=== PATIENT | male | born 1970 | race Caucasian/White ===

== ENCOUNTER 2021-05-31 10:37 | Outpatient (REF) | payer BC, SELFPAY ==
[2021-05-31 22:34] LABS: Abs Immature Grans 0.03 10^3/uL (0.0-0.06); Absolute Basophil Count 0.06 10^3/uL (0.0-0.2); Absolute Eosinophil Count 0.15 10^3/uL (0.0-0.7); Absolute Lymphocyte Count 2.49 10^3/uL (1.2-3.4); Absolute Monocyte Count 0.87 10^3/uL (0.1-0.8); Absolute Neutrophil Count 4.07 10^3/uL (1.2-6.7); Basophils % 0.8; ESR 2 mm/hr (0-15); HCT 46.2 % (40.0-50.0); Immature Grans % 0.4; Lymphocytes % 32.5; MCH 29.8 pg (27.0-33.0); MCHC 32.5 % (32.0-36.0); MCV 91.8 fL (80-95); MPV 10.1 fL (8.0-11.0); Monocytes % 11.3; Nucleated RBC 0 %; Platelet Count 377 10^3/uL (130-400); RBC 5.03 10^6/uL (4.36-5.78); RDW 13.8 % (11.8-14.1); RDW-SD 47.2 fL; WBC 7.67 10^3/uL (4.4-10.8)
[2021-05-31 22:49] LABS: ALT 32 U/L (16-63); AST 22 U/L (15-37); Albumin 4.1 g/dL (3.4-5.0); Alkaline Phosphatase 68 U/L (46-116); Anion Gap 8.8 mmol/L (3-11); BUN 17 mg/dL (7-18); Bilirubin, Total 0.4 mg/dL (0.2-1.0); CO2 27.2 mmol/L (21.0-32.0); CREATININE 0.8 mg/dL (0.70-1.30); Chloride 105 mmol/L (98-107); Glucose 91 mg/dL (74-106); Potassium 4.3 mmol/L (3.5-5.1); Sodium 141 mmol/L (136-145); Total Protein 7.1 g/dL (6.4-8.2)
== END 2021-05-31 10:38 | disposition home or self-care (01) ==
LOC: NCHCN 10:37
PROVIDERS: Visit Provider Family Medicine
DX: Z00.00 Encounter for general adult medical examination without abnormal findings (principal); R19.7 Diarrhea, unspecified; B00.2 Herpesviral gingivostomatitis and pharyngotonsillitis
CPT/HCPCS: 80053; 85652; 85025

== ENCOUNTER 2023-03-22 12:25 | Emergency (ER) | payer MEDICAID, SELFPAY ==
[2023-03-22] VITALS (10 sets, daily range): BP systolic 156; BP diastolic 106; PULSE 84–109; RESP 13–22; TEMP 36.2; O2SAT 92–100
--- NOTE | 2023-03-22 12:15 | RT.EKG_ITS ---
APPROVED REPORT Exam: Resting ECG Reason for Exam: Diaphoretic Patient Location: E HR:102 bpm ECG Measurements Heart Rate 102 AXIS AL 131 P 59 QRSd 92 QRS 94 QT 353 T [id number] QTc 462 Conclusion Sinus tachycardia...rate> 99 Narrow complex sinus tachycardia at a rate of 102. Difficult to interpret secondary to wandering emily zamora. No obvious acute injury pattern. No prior for comparison.
[2023-03-22 13:12] LABS: BE (Venous) -1 mmol/L (-2-3); HCO3 (Venous) 22 mmol/L (23-28); O2 Sat (Venous) 69 %; TCO2 (Venous) 18 mmol/L (24-29); pCO2 (Venous) 26 mmHg (41-51); pH (Venous) 7.53 (7.31-7.41); pO2 (Venous) 31 mmHg
[2023-03-22 13:13] LABS: Abs Immature Grans 0.04 10^3/uL (0.0-0.06); Absolute Eosinophil Count 0.15 10^3/uL (0.0-0.7); Absolute Monocyte Count 1.02 10^3/uL (0.1-0.8); Absolute Neutrophil Count 4.18 10^3/uL (1.2-6.7); Basophils % 1.2; Eosinophils % 1.8; HCT 53.1 % (40.0-50.0); HGB 18.1 g/dL (13.5-17.5); Immature Grans % 0.5; Lymphocytes % 33.8; MCH 30.2 pg (27.0-33.0); MCHC 34.1 % (32.0-36.0); MCV 89 fL (80-95); MPV 8.7 fL (8.0-11.0); Monocytes % 12.3; Neutrophils % 50.4; Platelet Count 413 10^3/uL (130-400); RDW 12.6 % (11.8-14.1); RDW-SD 41.4 fL; WBC 8.29 10^3/uL (4.4-10.8)
[2023-03-22] MEDS: LORazepam 2 MG/ML VIAL 0.5 MG IVP (13:25)
[2023-03-22] MEDS: Normal Saline 1,000 ML 1000 ML IV (13:26)
[2023-03-22 13:33] LABS: Salicylate < 2.8 mg/dL (<2.8)
--- NOTE | 2023-03-22 13:33 | ED.GENADUL_ITS ---
Discharge Plan Disposition Patient Disposition: Home Condition: Improving Discharge Details Clinical Impression: Tachycardia, Insomnia, Diaphoresis Primary Care Provider: Lilian Escobedo ED Provider: Josep Jiang Home Meds and New Rx's Prescriptions: New clonazepam 0.5 mg tablet 0.5 mg PO QHS Qty: 7 0RF Rx Instructions: administer 30 minutes before bedtime; prn severe insomnia/anxiety No Action valacyclovir [Valtrex] 500 mg Tablet 500 mg PO DAILY trazodone 100 mg Tablet 200 mg PO HS Benefiber Sugar Free (dextrin) 1 gram Tablet,Chewable 1 tab PO DAILY Rx Instructions: chew thoroughly before swallowing; do not swallow whole Discharge Instructions Instructions: Insomnia (ED) Additional Instructions: Please follow-up with your primary care physician. Please only take the clonazepam medication for severe instances of insomnia and/or anxiety. Please return to the emergency department for any worsening symptom Medical Decision Making 52-year-old male presents with diaphoresis pallor tachycardia hypertension difficulty sleeping nausea and decreased appetite with an unintentional 20 pound weight loss over the past couple of months. Neurologically intact without deficits, no ataxia, following commands, calm cooperative however does appear anxious. Denies drug or alcohol abuse. Denies history of psychiatric illness however patient is on trazodone. Consider alcohol withdrawal versus viral illness versus bacterial illness such as pneumonia or intra-abdominal process versus drug withdrawal versus dehydration versus toxicologic process low suspicion for ACS or PE or aortic pathology. Will obtain screening labs blood sugar, VBG, proctologic labs, urinalysis, CT chest abdomen pelvis, fluids low- dose benzodiazepine close reassessment 15: 50 patient feeling much better after low-dose benzodiazepine heart rate now in the 80s, blood pressure has improved. Labs and imaging unremarkable. Consider severe insomnia anxiety and/or panic attack. Patient follows closely with primary care physician and will discuss further evaluation. Will provide short course of rescue clonazepam. Given home care instructions and strict return precautions HPI General Date/Time Provider Initiated Documentation: 03/22/23 12:40 . HPI Narrative: 52-year-old male presents with several days of difficulty sleeping nausea decreased appetite, endorses a 20 pound unintentional weight loss since December. No chest pain or shortness of breath. No cough. Feels sweaty and anxious. Denies drug or alcohol use. Denies history of bipolar/mary. Related Data Home Medications Medication Instructions Recorded Confirmed clonazepam 0.5 mg tablet 0.5 mg PO QHS #7 tabs 03/22/23 trazodone 100 mg tablet 200 mg PO HS 03/22/23 03/22/23 valacyclovir 500 mg tablet 500 mg PO DAILY 03/22/23 03/22/23 (Valtrex) wheat dextrin 1 gram chewable 1 tab PO DAILY 03/22/23 03/22/23 tablet (Benefiber Sugar Free (dextrin)) Previous Rx's Medication Instructions Recorded clonazepam 0.5 mg tablet 0.5 mg PO QHS #7 tabs 03/22/23 Allergies Allergy/AdvReac Type Severity Reaction Status Date / Time No Known Allergies Allergy Unverified 03/22/23 12:36 General Stated Complaint: GenMedical OLGA: 2 Review of Systems Narrative: Review of Systems Constitutional: Sweating Eyes: negative ENT: negative Cardiovascular: negative Respiratory: negative Gastrointestinal: Nausea : negative Musculoskeletal: negative Skin: negative Neurologic: Insomnia Psych: negative PFSH All Active Problems (Updated 03/22/23 @ 15:51 by Josep Jiang MD) Tachycardia (Acute) Insomnia (Acute) Diaphoresis (Acute) Social History Smoking/Tobacco Use Status: Never Smoking risk assessment performed?: Yes Alcohol Intake: never Substance use type: does not use Do you feel safe at home: Yes Do you feel safe in your relationship?: Yes Exam Narrative Exam Narrative: Physical Examination General: alert, awake, cooperative, resting comfortably, no acute distress HEENT: normocephalic, atraumatic; PERRL, EOM intact, conjunctiva normal; no nasal discharge; moist mucous membranes, oral and pharyngeal mucosa normal, to lerating secretions Neck: supple, trachea midline; full ROM Chest: normal to inspection Respiratory: normal respiratory effort, speaking in full sentences, clear to auscultation, no wheezing, rales or rhonchi Cardiac: Tachycardia, regular rhythm, S1S2 intact, no murmurs rubs or gallops GI: abdomen soft, non-tender, non-distended; no palpable mass or hepatosplenomegaly Skin: Diaphoretic, pallor Neuro: AAOx3, normal speech, moving all extremities; 5-5 strength upper and lower extremities, cranial nerves intact, no ataxia Psych: Appropriate mood and affect Course Vital Signs Vital signs: Vital Signs Pulse 109 H 03/22/23 12:33 Respiratory Rate 20 03/22/23 12:33 Blood Pressure 156/106 H 03/22/23 12:33 Pulse Oximetry 100 03/22/23 12:33 Temperature 36.2 C L 03/22/23 13:17 Pulse 109 H 03/22/23 12:33 Respiratory Rate 20 03/22/23 12:33 Blood Pressure 156/106 H 03/22/23 12:33 Blood Pressure Position Sitting 03/22/23 12:33 Pulse Oximetry 100 03/22/23 12:33 Oxygen Delivery Method Room Air 03/22/23 12:33 Oxygen Flow Rate 0 03/22/23 12:33 Pain Level 0 03/22/23 12:33 Lab/Test Results Lab/Test Results: 03/22/23 12:49 Blood Blood Culture - Pending 03/22/23 12:49 Blood Blood Culture - Pending Laboratory Tests Range/Units 03/22/23 03/22/23 13:00 13:00 WBC (4.4-10.8) 10^3/uL 8.29 RBC (4.36-5.78) 10^6/uL 6.00 H Hgb (13.5-17.5) g/dL 18.1 H Hct (40.0-50.0) % 53.1 H MCV (80-95) fL 89 MCH (27.0-33.0) pg 30.2 MCHC (32.0-36.0) % 34.1 RDW (11.8-14.1) % 12.6 Plt Count (130-400) 10^3/uL 413 H MPV (8.0-11.0) fL 8.7 Immature Gran % 0.5 Neutrophils % 50.4 Lymphocytes % 33.8 Monocytes % 12.3 Eosinophils % 1.8 Basophils % 1.2 Nucleated RBC % (0.0-0.3) % 0.0 Absolute Neutrophils (1.2-6.7) 10^3/uL 4.18 Absolute Lymphocytes (1.2-3.4) 10^3/uL 2.80 Absolute Monocytes (0.1-0.8) 10^3/uL 1.02 H Absolute Eosinophils (0.0-0.7) 10^3/uL 0.15 Absolute Basophils (0.0-0.2) 10^3/uL 0.10 VBG pH (7.31-7.41) 7.53 H VBG pCO2 (41-51) mmHg 26 L VBG pO2 mmHg 31 VBG HCO3 (23-28) mmol/L 22 L VBG Total CO2 (24-29) mmol/L 18 L VBG O2 Saturation % 69 VBG Base Excess (-2-3) mmol/L -1
[2023-03-22 13:38] LABS: ALT 111 U/L (16-63); AST 46 U/L (15-37); Albumin 4.8 g/dL (3.4-5.0); Alkaline Phosphatase 83 U/L (46-116); Anion Gap 14.7 mmol/L (3-11); BUN 15 mg/dL (7-18); Bilirubin, Total 0.7 mg/dL (0.2-1.0); CO2 23.3 mmol/L (21.0-32.0); Calcium 10.7 mg/dL (8.5-10.1); Chloride 101 mmol/L (98-107); Creatine Kinase 60 U/L (39-308); Estimated GFR 90.56 (mL/min/1.73m2); Glucose 110 mg/dL (74-106); Lipase 53 U/L (16-77); Magnesium 2.2 mg/dL (1.8-2.4); Potassium 3.3 mmol/L (3.5-5.1); Sodium 139 mmol/L (136-145); TSH (W/Ref FT4) 1.46 uIU/mL (0.36-3.74); Total Protein 9.3 g/dL (6.4-8.2)
[2023-03-22 13:39] LABS: ETHANOL BLOOD < 3.0 mg/dL (<10); Troponin I < 50 ng/L (<or=60)
--- NOTE | 2023-03-22 15:10 | DI.CT_ITS ---
Exam(s) CT CERVICAL SPINE WO EXAM: CT CERVICAL SPINE WO CLINICAL HISTORY: neck pain. TECHNIQUE: Imaging Protocol: Axial computed tomography images with coronal and sagittal reformatted images were created and reviewed CONTRAST MATERIAL: Noncontrast COMPARISON: No exams were available for comparison FINDINGS: Bones: No fracture or dislocations are seen. The alignment of the cervical spine is normal including the cervicovertebral junction and cervicothoracic junction. Degenerative changes at C1-2. Mild degen erative disc changes seen elsewhere. Soft Tissues: The soft tissues of the neck are unremarkable. No large disk herniations are identified . The visualized portions of the lung apices are clear. No pneumothorax is seen. IMPRESSION: No acute abnormality. RADIATION DOSE DELIVERED: 504.8mGy.cm Total DLP DATA REPOSITORY: All CT scans at this facility are submitted to the National Radiology Data Registry (NRDR) Dose Index Registry (DIR) with the [employer] ([employer]). RADIATION OPTIMIZATION: All CT scans at this facility use at least one of these dose optimization te chniques: automated exposure control; mA and/or kV adjustment per patient size (includes targeted exa ms where dose is matched to clinical indication); or iterative reconstruction.
[2023-03-22] MEDS: Normal Saline - Diluent 50 ML VIAL IJ (15:14)
[2023-03-22] MEDS: Omnipaque 350 MG/ML 100 ML BTL IJ (15:14)
--- NOTE | 2023-03-22 15:20 | DI.CT_ITS ---
Exam(s) CT CHEST/ABD/PEL W EXAM: CT CHEST/ABD/PEL W CLINICAL HISTORY: sweats, nausea, tachycardia. TECHNIQUE: Imaging Protocol: Axial computed tomography images with coronal and sagittal reformatted images were created and reviewed CONTRAST MATERIAL: Intravenous: Omnipaque 350 Contrast volume:100 ml Oral: / no COMPARISON: No exams were available for comparison FINDINGS: CHEST: Tracheobronchial tree: Patent where visualized. Pulmonary parenchyma: No consolidation or dominant measurable mass. Pleura: No effusion or pneumothorax. Lymph nodes: Within normal limits. Aorta: Thoracic portion non-dilated. Heart: Normal size. No pericardial effusion. No coronary artery calcifications. Bones: Unremarkable for age. No lytic or blastic lesions.No compression fractures. ABDOMEN and PELVIS: Liver: Normal density. No measurable mass. Gallbladder and biliary tract: No evidence of stones or wall thickening. No biliary dilatation. Pancreas: Normal density, no abnormal calcifications or inflammatory process. Spleen: Normal. Kidneys: Normal size, contour and axis. No radiodense stones or obstructive uropathy. No suspicious m asses seen. Adrenal glands: No masses seen. Aorta: Abdominal portion non-dilated. Mild atherosclerotic changes. Lymph nodes: Within normal limits. Soft tissues: Unremarkable. Bladder: Unremarkable. Bowel: No obstruction or bowel wall thickening. Peritoneal cavity: No ascites. No focal collection or mesenteric inflammatory response. Bones: Unremarkable for age. Reproductive organs: Within normal limits. IMPRESSION: No acute abnormality in the chest, abdomen or pelvis.. RADIATION DOSE DELIVERED: 1,436.88mGy.cm Total DLP DATA REPOSITORY: All CT scans at this facility are submitted to the National Radiology Data Registry (NRDR) Dose Index Registry (DIR) with the [employer] ([employer]). RADIATION OPTIMIZATION: All CT scans at this facility use at least one of these dose optimization te chniques: automated exposure control; mA and/or kV adjustment per patient size (includes targeted exa ms where dose is matched to clinical indication); or iterative reconstruction.
[2023-03-22 16:20] LABS: Bilirubin Negative (Negative); Blood Negative (Negative); Clarity Clear (Clear); Glucose Negative (Negative); Ketones 40 mg/dL (Negative); Leukocyte Esterase Negative (Negative); Nitrite Negative (Negative); Specific Gravity <= 1.005 (1.005-1.025); Urobilinogen 0.2 mg/dL (Up to 0.2); pH 5.5 (5-8)
[2023-03-22 16:39] LABS: *AMPHETAMINES SCREEN URINE Negative (Negative); *BARBITURATES SCREEN URINE Negative (Negative); *BENZODIAZEPINES SCREEN URINE Negative (Negative); Cannabinoids THC Positive (Negative); Cocaine Screen,Urine Negative (Negative); METHADONE URINE SCREEN Negative (Negative); OPIATES URINE SCREEN Negative (Negative)
[2023-03-22 16:53] LABS: Tricyclic Antidepressants Negative (Negative)
== END 2023-03-22 16:17 | disposition home or self-care (01) ==
PROVIDERS: Emergency Provider Emergency Medicine; PCP Nurse Practitioner Family
DX: G47.00 Insomnia, unspecified (principal); R00.0 Tachycardia, unspecified; R63.4 Abnormal weight loss; I10 Essential (primary) hypertension; Z79.899 Other long term (current) drug therapy
CPT/HCPCS: 74177; 80053; 80307; 82550; 82805; 82962; 83690; 87040; 93005; 96361; 99285; 71260; 72125; 80320; 80329; 81003; 83735; 84443; 84484; 85025; 93010; 99284; J2060; J3490

== ENCOUNTER 2023-05-07 15:45 | Outpatient (REF) | payer MEDICAID, SELFPAY ==
[2023-05-07 16:06] LABS: FREE T4 0.94 ng/dL (0.76-1.46); TSH 0.98 uIU/mL (0.36-3.74)
[2023-05-08 23:04] LABS: Tissue Transglutaminase Ab IgA <1.2 U/mL
== END 2023-05-07 15:46 | disposition home or self-care (01) ==
LOC: NCHCN 15:45
PROVIDERS: PCP Nurse Practitioner Family; Visit Provider Physician Assistant
DX: R19.7 Diarrhea, unspecified (principal)
CPT/HCPCS: 83516; 84439; 84443